=== PATIENT | female | born 1990 | race Caucasian/White ===

== ENCOUNTER 2018-06-12 19:47 | Emergency (ER) | payer BC ==
[~2018-06-12] VITALS: Ht 160 cm; Wt 86.4 kg
[~2018-06-12 19:47] MED LIST: ADDERALL20 MG PO; AMOXICILLIN 50500 MG PO; BCP TD; BENADRYL25 M2 PO; CEFTIN 250250 MG/TAB PO; CEFTIN500 MG PO; LORTAB 5/500 501 TAB PO; NORCO 325 MG-51 TAB PO; PROZAC 20MG20 MG PO; XANAX 0.5MG0.5 MG PO; ZOFRAN 4MG T4 MG/TAB PO
[2018-06-12 19:50] VITALS: TEMP 97.6
[2018-06-12] MEDS ORDERED: KLONOPIN 0.5MG0.5 MG PO (20:02)
[2018-06-12] MEDS ORDERED: BIRTH CONTROL (20:02)
[2018-06-12 20:18] LABS: COLLECTION METHOD CLEAN CATCH
[2018-06-12] MEDS ORDERED: PROZAC 10MG10 MG PO (20:20)
[2018-06-12 20:21] LABS: BASO % 0.5 % (0.0-2.0); EOS # 0.1 (0.0-0.7); EOS % 1.1 % (0-4.0); GRAN # 4.9 (1.4-6.5); GRAN % 55.8 % (42.2-75.2); HEMATOCRIT 39.8 % (37.0-47.0); HEMOGLOBIN 13.2 g/dl (12.5-16.0); LYMPH # 3.1 (1.2-3.4); LYMPH % 35.4 % (20.0-51.0); MEAN CELL VOLUME 88 fl (80.0-100.0); MEAN CORPUSCULAR HEMOGLOBIN 29 pg (27.0-31.0); MEAN CORPUSCULAR HGB CONC 33 g/dl (33.0-37.0); MEAN PLATELET VOLUME 9.9 fl (7.4-10.4); MONO # 0.6 (0.1-0.6); MONO % 6.9 % (1.7-9.3); PLATELET COUNT 397 K/mm3 (130-400); RED BLOOD COUNT 4.54 M/mm3 (4.10-5.30); REDCELL DISTRIBUTION WIDTH-CV 12.6 % (11.5-14.5)
[2018-06-12 20:27] LABS: MUCOUS Present /lpf; PH 5 (5-8); URINE APPEARANCE Cloudy; URINE BACTERIA Rare /hpf; URINE BILIRUBIN Negative (NEGATIVE); URINE BLOOD 1+ (NEGATIVE); URINE COLOR Yellow; URINE GLUCOSE Negative (NEGATIVE); URINE KETONE Negative (NEGATIVE); URINE LEUKOCYTE ESTERASE 3+ (NEGATIVE); URINE NITRATE Negative (NEGATIVE); URINE PROTEIN(semi-quant) Negative (NEGATIVE)
[2018-06-12 20:36] LABS: ALBUMIN 3.8 gm/dL (3.5-5.0); BILIRUBIN,TOTAL 0.3 mg/dL (0.0-1.0); C-REACTIVE PROTEIN 2.3 mg/dL (0.0-0.9); CALCIUM 8.7 mg/dL (8.4-10.2); CREATININE, serum 0.71 mg/dL (0.52-1.25); POTASSIUM 3.6 mmol/L (3.4-5.0); TOTAL PROTEIN 7.2 gm/dL (6.4-8.2)
[2018-06-12] MEDS ORDERED: OMNICEF 300MG300 MG PO (20:56)
[2018-06-12 21:10] VITALS: BP 122/84; PULSE 72
== END 2018-06-12 21:15 | disposition home or self-care (01) ==
LOC: COL.ER 19:47
PROVIDERS: Family Medicine
DX: K80.50 Calculus of bile duct without cholangitis or cholecystitis without obstruction (principal); N39.0 Urinary tract infection, site not specified; J45.909 Unspecified asthma, uncomplicated
CPT/HCPCS: J0696; J1885; J2405; J7030

== ENCOUNTER 2018-12-01 05:55 | Emergency (ER) | payer BC ==
[~2018-12-01] VITALS: Ht 160 cm; Wt 104.5 kg
[~2018-12-01 05:55] MED LIST changes: +BIRTH CONTROL; +KLONOPIN 0.5MG0.5 MG PO; +OMNICEF 300MG300 MG PO; +PROZAC 10MG10 MG PO
[2018-12-01 06:10] VITALS: BP 123/80; TEMP 97.6
[2018-12-01] MEDS ORDERED: NIKKI 3 MG-0.01 EACH PO (06:42)
[2018-12-01] MEDS ORDERED: PROZAC 20MG20 MG PO (06:44)
[2018-12-01] MEDS ORDERED: RETIN-A CR0.025 45GM TP (06:45)
[2018-12-01 06:47] LABS: COLLECTION METHOD CLEAN CATCH
[2018-12-01 06:51] LABS: BASO # 0.1 (0.0-0.2); BASO % 0.6 % (0.0-2.0); EOS # 0.1 (0.0-0.7); EOS % 1.3 % (0-4.0); GRAN # 5.1 (1.4-6.5); GRAN % 58.9 % (42.2-75.2); HEMATOCRIT 38.7 % (37.0-47.0); HEMOGLOBIN 12.7 g/dl (12.5-16.0); LYMPH # 2.8 (1.2-3.4); LYMPH % 31.9 % (20.0-51.0); MEAN CELL VOLUME 88 fl (80.0-100.0); MEAN CORPUSCULAR HEMOGLOBIN 29 pg (27.0-31.0); MEAN CORPUSCULAR HGB CONC 33 g/dl (33.0-37.0); MEAN PLATELET VOLUME 10.1 fl (7.4-10.4); MONO # 0.6 (0.1-0.6); MONO % 7.1 % (1.7-9.3); PLATELET COUNT 351 K/mm3 (130-400); RED BLOOD COUNT 4.39 M/mm3 (4.10-5.30); REDCELL DISTRIBUTION WIDTH-CV 12.5 % (11.5-14.5)
[2018-12-01 07:04] LABS: ALBUMIN 3.6 gm/dL (3.5-5.0); BILIRUBIN,TOTAL 0.2 mg/dL (0.0-1.0); C-REACTIVE PROTEIN 2.2 mg/dL (0.0-0.9); CALCIUM 8.9 mg/dL (8.4-10.2); CREATININE, serum 0.77 (0.52-1.25); POTASSIUM 3.8 mmol/L (3.4-5.0); TOTAL PROTEIN 7.1 gm/dL (6.4-8.2)
[2018-12-01 07:11] LABS: MUCOUS Present /lpf; PH 5 (5-8); SQUAMOUS EPITHELIAL 20-50 /hpf; URINE APPEARANCE Cloudy; URINE BACTERIA Rare /hpf; URINE BILIRUBIN Negative (NEGATIVE); URINE BLOOD Negative (NEGATIVE); URINE COLOR Yellow; URINE GLUCOSE Negative (NEGATIVE); URINE KETONE Negative (NEGATIVE); URINE LEUKOCYTE ESTERASE 3+ (NEGATIVE); URINE NITRATE Negative (NEGATIVE); URINE PROTEIN(semi-quant) Negative (NEGATIVE); URINE UROBILINOGEN Negative (NEGATIVE)
[2018-12-01] MEDS ORDERED: CEPHALEXIN500 M1 PO (08:51)
[2018-12-01 10:10] VITALS: PULSE 70
[2018-12-01] MEDS ORDERED: ZOFRAN ODT4 MG PO (21:37)
== END 2018-12-01 10:10 | disposition home or self-care (01) ==
LOC: COL.ER 05:55
PROVIDERS: Emergency Medicine
DX: N39.0 Urinary tract infection, site not specified (principal); K80.50 Calculus of bile duct without cholangitis or cholecystitis without obstruction
CPT/HCPCS: A4216; J0696; J1170; J1885; J2550; J7030

== ENCOUNTER 2018-12-01 19:58 | Emergency (ER) | payer BC ==
[~2018-12-01] VITALS: Ht 160 cm; Wt 104.5 kg
[~2018-12-01 19:58] MED LIST changes: +CEPHALEXIN500 M1 PO; +NIKKI 3 MG-0.01 EACH PO; +RETIN-A CR0.025 45GM TP
[2018-12-01] MEDS ORDERED: ZOFRAN ODT4 MG PO (21:37)
[2018-12-01 22:10] VITALS: BP 144/72; PULSE 81
== END 2018-12-01 22:12 | disposition home or self-care (01) ==
LOC: COL.ER 19:58
DX: K80.80 Other cholelithiasis without obstruction (principal)
CPT/HCPCS: J2405; J3010

== ENCOUNTER 2018-12-19 19:26 | Emergency (ER) | payer BC ==
[~2018-12-19] VITALS: Ht 160 cm; Wt 86.4 kg
[~2018-12-19 19:26] MED LIST changes: +ZOFRAN ODT4 MG PO
[2018-12-19 19:31] VITALS: BP 140/93; TEMP 98.1
[2018-12-19 20:11] VITALS: PULSE 97
== END 2018-12-19 20:11 | disposition home or self-care (01) ==
LOC: COL.ER 19:26
DX: S93.402A Sprain of unspecified ligament of left ankle, initial encounter (principal); X50.1XXA Overexertion from prolonged static or awkward postures, initial encounter

== ENCOUNTER 2019-07-08 07:51 | Emergency (ER) | payer SELFPAY ==
[~2019-07-08] VITALS: Ht 160 cm; Wt 104.5 kg
[2019-07-08 07:55] VITALS: TEMP 97.5
[2019-07-08] MEDS ORDERED: FLEXERIL 1010 MG/TAB PO (08:22)
[2019-07-08 09:04] LABS: BASO # 0.1 (0.0-0.2); BASO % 0.7 % (0.0-2.0); EOS # 0.1 (0.0-0.7); EOS % 0.9 % (0-4.0); HEMOGLOBIN 11.8 g/dl (12.5-16.0); LYMPH # 1.9 (1.2-3.4); LYMPH % 21.1 % (20.0-51.0); MEAN CELL VOLUME 90 fl (80.0-100.0); MEAN CORPUSCULAR HEMOGLOBIN 29 pg (27.0-31.0); MEAN CORPUSCULAR HGB CONC 32 g/dl (33.0-37.0); MEAN PLATELET VOLUME 9.5 fl (7.4-10.4); MONO # 0.7 (0.1-0.6); PLATELET COUNT 360 K/mm3 (130-400); RED BLOOD COUNT 4.13 M/mm3 (4.10-5.30); REDCELL DISTRIBUTION WIDTH-CV 12.8 % (11.5-14.5)
[2019-07-08 09:22] LABS: ALBUMIN 3.6 gm/dL (3.5-5.0); BILIRUBIN,TOTAL 0.4 mg/dL (0.0-1.0); CALCIUM 8.7 mg/dL (8.4-10.2); CREATININE, serum 0.69 (0.52-1.25); POTASSIUM 3.5 mmol/L (3.4-5.0); TOTAL PROTEIN 6.9 gm/dL (6.4-8.2)
[2019-07-08 09:52] LABS: COLLECTION METHOD CLEAN CATCH
[2019-07-08 10:14] LABS: MUCOUS Present /lpf; PH 5 (5-8); URINE APPEARANCE Cloudy; URINE BACTERIA Rare /hpf; URINE BILIRUBIN Negative (NEGATIVE); URINE BLOOD Negative (NEGATIVE); URINE COLOR Yellow; URINE GLUCOSE Negative (NEGATIVE); URINE KETONE Negative (NEGATIVE); URINE LEUKOCYTE ESTERASE 2+ (NEGATIVE); URINE NITRATE Negative (NEGATIVE); URINE PROTEIN(semi-quant) 1+ (NEGATIVE)
[2019-07-08] MEDS ORDERED: CEPHALEXIN500 M1 PO (10:38)
[2019-07-08 10:53] VITALS: BP 110/85; PULSE 90
== END 2019-07-08 10:54 | disposition home or self-care (01) ==
LOC: COL.ER 07:51
PROVIDERS: Emergency Medicine
DX: N39.0 Urinary tract infection, site not specified (principal); M54.5 Low back pain; M25.512 Pain in left shoulder; M54.2 Cervicalgia; F41.9 Anxiety disorder, unspecified; Z23 Encounter for immunization; V49.9XXA Car occupant (driver) (passenger) injured in unspecified traffic accident, initial encounter
CPT/HCPCS: J2270; J2405

== ENCOUNTER → 2019-12-01 | Outpatient (CLI) | payer OTHER ==
[~2019-12-01] MED LIST changes: +FLEXERIL 1010 MG/TAB PO
== END ==
LOC: ZCOL.LAB 16:36
DX: R06.02 Shortness of breath (principal); R05 Cough; R07.9 Chest pain, unspecified

== ENCOUNTER 2019-12-04 17:14 | Emergency (ER) | payer OTHER ==
[~2019-12-04] VITALS: Ht 160 cm; Wt 109.1 kg
[2019-12-04] MEDS ORDERED: BENADRYL25 M2 PO (18:22)
[2019-12-04] MEDS ORDERED: TYLENOL 500MG500 MG PO (18:23)
[2019-12-04] MEDS ORDERED: PREDNISONE1 MG PO (18:26)
[2019-12-04] MEDS ORDERED: PROAIR HFA0.09 MG/AC IH (18:27)
[2019-12-04] MEDS ORDERED: STRATTERA80 MG (18:28)
[2019-12-04 19:00] LABS: BASO % 0.1 % (0.0-2.0); GRAN # 7.6 (1.4-6.5); GRAN % 87.2 % (42.2-75.2); HEMATOCRIT 38.5 % (37.0-47.0); HEMOGLOBIN 12.6 g/dl (12.5-16.0); LYMPH # 0.9 (1.2-3.4); LYMPH % 9.8 % (20.0-51.0); MEAN CELL VOLUME 88 fl (80.0-100.0); MEAN CORPUSCULAR HEMOGLOBIN 29 pg (27.0-31.0); MEAN CORPUSCULAR HGB CONC 33 g/dl (33.0-37.0); MEAN PLATELET VOLUME 9.7 fl (7.4-10.4); MONO # 0.2 (0.1-0.6); MONO % 2.4 % (1.7-9.3); PLATELET COUNT 403 K/mm3 (130-400); RED BLOOD COUNT 4.36 M/mm3 (4.10-5.30); REDCELL DISTRIBUTION WIDTH-CV 12.8 % (11.5-14.5)
[2019-12-04 19:10] LABS: ALANINE AMINOTRANSFERASE 22 U/L (4-34); ALBUMIN 3.9 gm/dL (3.5-5.0); ALKALINE PHOSPHATASE 105 U/L (50-136); ANION GAP 11 mmol/L (7-16); AST,SGOT 26 U/L (15-37); BILIRUBIN,TOTAL 0.4 mg/dL (0.0-1.0); BLOOD UREA NITROGEN 6 mg/dL (7-17); C-REACTIVE PROTEIN 3.3 mg/dL (0.0-0.9); CALCIUM 9.2 mg/dL (8.4-10.2); CARBON DIOXIDE 18 mmol/L (22-30); CHLORIDE 108 mmol/L (98-107); CREATININE, serum 0.59 (0.52-1.25); GLUCOSE 166 mg/dL (74-106); POTASSIUM 3.8 mmol/L (3.4-5.0); SODIUM 138 mmol/L (137-145); TOTAL PROTEIN 7.6 gm/dL (6.4-8.2)
[2019-12-04 19:19] LABS: TROPONIN-I < 0.012 ng/mL (0.000-0.035)
[2019-12-04 20:22] VITALS: BP 95/56; PULSE 91; TEMP 98.8
== END 2019-12-04 20:24 | disposition home or self-care (01) ==
LOC: COL.ER 17:14
PROVIDERS: Physician Assistant
DX: B34.9 Viral infection, unspecified (principal); F43.10 Post-traumatic stress disorder, unspecified; F41.9 Anxiety disorder, unspecified; J45.909 Unspecified asthma, uncomplicated; Z79.52 Long term (current) use of systemic steroids; Z20.828 Contact with and (suspected) exposure to other viral communicable diseases
CPT/HCPCS: J2060; J7030